=== PATIENT | female | born 1945 | race Caucasian/White ===

== ENCOUNTER 2017-03-04 09:44 | Outpatient (CLI) | payer MEDICARE, BC ==
--- NOTE | 2017-03-04 16:14 | NM ---
NUCLEAR MEDICINE [place] BRAIN SCAN: DATE: 03/04/17. HISTORY: A 71-year-old female with dysphonia, R49.0. TECHNIQUE: 130 mg of potassium iodide given 1 hour prior to injection of Ioflupane. 4.5 mCi of [id number] Ioflupane injected IV. Three-hour delayed axial scintigraphy performed through the brain. FINDINGS: There is normal uptake and distribution of Ioflupane in the bilateral corpus striatum. IMPRESSION: Normal. Negative for Parkinson's disease. POS: [facility]
== END 2017-03-04 09:45 | disposition home or self-care (01) ==
LOC: NM 09:44
PROVIDERS: ATTEND Psychiatry & Neurology Neurology
DX: R49.0 Dysphonia (principal)
CPT/HCPCS: 78607; A9584

== ENCOUNTER 2017-03-31 09:52 | Outpatient (CLI) | payer MEDICARE, BC ==
[~2017-03-31 09:52] MED LIST: Gadobenate Dimeglumine 529 MG/1 ML (20ML VIAL) ONE
--- NOTE | 2017-03-31 14:21 | MRI ---
MRI BRAIN WITH AND WITHOUT CONTRAST: INDICATIONS: Dysphonia. FINDINGS: There is no acute intracranial mass effect, midline shift, or ventriculomegaly. Skull base flow void s are maintained. [place]ell intraocular lenses are absent. There is motion artifact, which limits asse ssment. No evidence of an enhancing intraaxial mass. There is minimal mucosal thickening of the par anasal sinuses and trace left mastoid fluid. IMPRESSION: No acute intracranial abnormalities. POS: [facility]
== END 2017-03-31 09:53 | disposition home or self-care (01) ==
LOC: SCSMRI 09:52
PROVIDERS: ATTEND Psychiatry & Neurology Neurology
DX: R49.0 Dysphonia (principal)
CPT/HCPCS: 70553; 82565; A9579

== ENCOUNTER 2017-05-11 09:50 | Outpatient (CLI) | payer MEDICARE, BC ==
--- NOTE | 2017-05-11 13:12 | MRI ---
MRI CERVICAL SPINE WITHOUT CONTRAST: HISTORY: Dysphonia. Difficulty speaking. Loss of balance. Difficulty writing x 1 year. COMPARISON: None. TECHNIQUE: MRI cervical spine is performed without intravenous Gadolinium administration. Multisequential, mult iplanar imaging is performed. FINDINGS: Appropriate T1 marrow signal intensity of the cervical vertebrae. Mild loss of vertebral body height at C5 without significant STIR hyperintensity. There is moderate degenerative disk disease at C5-C6 , C6-7. No significant STIR hyperintensity to suggest vertebral body edema or ligamentous injury. There is 4 .7 mm of anterolisthesis of C3 upon C4, 4.3 mm anterolisthesis of C4 upon C5, 4.2 mm of anterolisthes is of T1 upon T2. The visualized cervical cord, and the upper thoracic cord have a normal size and signal intensity. There is abnormal FLAIR T2 hyperintensity involving the inferior medulla, incompletely evaluated. There are T2 hyperintensities in the left thyroid lobe and thyroid isthmus. C2-C3: Broad-based disk-osteophyte complex abuts the thecal sac. No significant central canal steno sis. Right neural foramen is patent. Mild left foraminal narrowing. C3-C4: Broad-based disk-osteophyte complex abuts the thecal sac. Ventral subarachnoid space is effa debi. Mild central canal stenosis. Right neural foramen is patent. Moderate left foraminal narrowin g due to degenerative change of the uncovertebral joint. C5-C6: Broad-based disk-osteophyte complex abuts the thecal sac. There is deformity of the cervical cord. Mild central canal stenosis. Moderate right foramina narrowing. The left foramen is patent. C6-C7: Broad-based disk-osteophyte complex abuts the thecal sac. Ventral subarachnoid space is main tained. Mild deformity of the cervical cord, without T2 hyperintensity of the cord. Moderate right and severe left foraminal narrowing. C6-C7: Broad-based disk-osteophyte complex abuts the thecal sac. Ventral subarachnoid space is effa debi. Moderate right and moderate to severe left foraminal narrowing. C7-T1: No significant disk-osteophyte complex. No significant central canal stenosis. Foramen are patent. IMPRESSION: 1. Degenerative change of the cervical spine as above. 2. Abnormal T2 hyperintensity involving the inferior medulla. Results of the study discussed with Dr. Hoyos 05/11/17 at 11:29 a.m. CODE EDIS POS: [facility]
== END 2017-05-11 09:51 | disposition home or self-care (01) ==
LOC: SCSMRI 09:50
PROVIDERS: ATTEND Psychiatry & Neurology Neurology
DX: R49.0 Dysphonia (principal); M47.892 Other spondylosis, cervical region
CPT/HCPCS: 72141

== ENCOUNTER 2019-05-20 10:16 | Outpatient (CLI) | payer MEDICARE, BC ==
--- NOTE | 2019-05-24 11:46 | RAD ---
MODIFIED BARIUM SWALLOW: Exam was reviewed remotely on CINE. INDICATION: Dysphagia and feeding difficulties. FINDINGS: Moderate swallowing dysfunction is noted. Spillage. There appears to be laryngeal penetration with thin liquids. The speech pathologist describes silent aspiration with thin liquids. IMPRESSION: Moderate swallowing dysfunction with evidence of laryngeal penetration and silent aspiration. See sp eech pathology recommendation. POS: [facility]
== END 2019-05-20 10:17 | disposition home or self-care (01) ==
PROVIDERS: ATTEND Internal Medicine
DX: R13.12 Dysphagia, oropharyngeal phase (principal); R63.3 Feeding difficulties
CPT/HCPCS: 74230